=== PATIENT | female | born 1980 | race Caucasian/White ===

== ENCOUNTER 2016-12-05 05:18 | Emergency (ER) | payer MEDICARE ==
[~2016-12-05 05:18] MED LIST: BIRTH CONTROL; CHILDRENS CHEWA81 MG PO; CLEOCIN150 MG PO
== END 2016-12-05 06:46 | disposition home or self-care (01) ==
LOC: ER 05:18
DX: L04.0 Acute lymphadenitis of face, head and neck (principal); Z90.710 Acquired absence of both cervix and uterus; Z98.84 Bariatric surgery status; F17.210 Nicotine dependence, cigarettes, uncomplicated; Z88.0 Allergy status to penicillin; Z88.2 Allergy status to sulfonamides
CPT/HCPCS: 96372; 99282-25

== ENCOUNTER 2017-03-12 22:41 | Emergency (ER) | payer MEDICARE | END 2017-03-13 00:32 | disposition home or self-care (01) | LOC: ER 22:41 | DX: T78.1XXA Other adverse food reactions, not elsewhere classified, initial encounter (principal); R21 Rash and other nonspecific skin eruption; R00.2 Palpitations; Z98.84 Bariatric surgery status; Z98.890 Other specified postprocedural states; Z88.2 Allergy status to sulfonamides; F17.210 Nicotine dependence, cigarettes, uncomplicated; Z88.0 Allergy status to penicillin | CPT/HCPCS: 96374; 96375; 99070; 99282-25; J2930 ==

== ENCOUNTER 2017-03-21 10:28 | Emergency (ER) | payer MEDICARE | END 2017-03-21 12:28 | disposition home or self-care (01) | LOC: ER 10:28 | DX: L02.01 Cutaneous abscess of face (principal); L03.211 Cellulitis of face; Z98.84 Bariatric surgery status; F17.210 Nicotine dependence, cigarettes, uncomplicated; Z88.0 Allergy status to penicillin; Z88.2 Allergy status to sulfonamides | CPT/HCPCS: 96372; 99282-25 ==